=== PATIENT | male | born 1935 | race Caucasian/White ===

== ENCOUNTER → 2016-10-23 | Outpatient (CLI) | payer BC ==
[~2016-10-23] MED LIST: ALLO100T PO; AMLO-110 PO; ATOR-24 PO; CHOL200010 PO; CRG25; FURO80TA63 PO; INSDGI SC; LISI40TA PO; MAGN400T6 PO; METO2.5T PO; MULT-506 PO; NVLGI SC; PANT40TA PO; POTA20TA16 PO; WARF10TA4 PO
[2016-10-23 13:15] LABS: HEMATOCRIT 42.4 % (42-52); MEAN CELL VOLUME 86.7 fL (80-100); MEAN CORPUSCULAR HEMOGLOBIN 28.4 pg (25-34); MEAN PLATELET VOLUME 8.9 fL (7.4-10.4); PLATELET COUNT 134 K/uL (130-400); RED BLOOD COUNT 4.89 M/uL (4.7-6.1); WHITE BLOOD COUNT 7.82 K/uL (4.8-10.8)
[2016-10-23 13:21] LABS: MEAN CORPUSCULAR HGB CONC 32.8 g/dl (32-36)
[2016-10-23 13:50] LABS: EOSINOPHIL % 0.9 %; LYMPH ABS # 1.16 K/uL (1.2-3.4); LYMPHOCYTE % 14.8 %; NEUTROPHILS % 80.8 %
[2016-10-23 13:52] LABS: ESTIMATED AVERAGE GLUCOSE 177 mg/dl; HA1C FLAG Normal (Normal)
[2016-10-23 14:07] LABS: ALT/SGPT 42 U/L (12-78); AST/SGOT 23 U/L (15-37); BLOOD UREA NITROGEN 27 mg/dl (7-18); CALCIUM 9.4 mg/dl (8.5-10.1); CARBON DIOXIDE 30 mmol/L (21-32); CHLORIDE 104 mmol/L (98-107); GLUCOSE 155 mg/dl (70-99); MAGNESIUM 2.1 mg/dl (1.8-2.4); PHOSPHORUS 2.7 mg/dl (2.5-4.9); POTASSIUM 3.6 mmol/L (3.5-5.1); SODIUM 143 mmol/L (136-145)
[2016-10-23 14:10] LABS: ALKALINE PHOSPHATASE 130 U/L (45-117); FERRITIN 40.1 ng/ml (8.0-388.0); TOTAL IRON BINDING CAPACITY 317 mcg/dl (250-450)
[2016-10-23 14:18] LABS: MDIFF REQUEST Y
== END | disposition home or self-care (01) ==
LOC: C.LABMFLN 11:35
PROVIDERS: ATTEND Internal Medicine Hematology & Oncology
DX: C82.31 Follicular lymphoma grade IIIa, lymph nodes of head, face, and neck (principal); E11.9 Type 2 diabetes mellitus without complications; E66.9 Obesity, unspecified; I48.91 Unspecified atrial fibrillation

== ENCOUNTER → 2016-12-22 | Outpatient (CLI) | payer BC ==
[2016-12-22 13:08] LABS: HEMATOCRIT 41.9 % (42-52); MEAN CELL VOLUME 86.9 fL (80-100); MEAN CORPUSCULAR HEMOGLOBIN 29.9 pg (25-34); MEAN CORPUSCULAR HGB CONC 34.4 g/dl (32-36); MEAN PLATELET VOLUME 9.3 fL (7.4-10.4); PLATELET COUNT 167 K/uL (130-400); RED BLOOD COUNT 4.82 M/uL (4.7-6.1); WHITE BLOOD COUNT 8.68 K/uL (4.8-10.8)
[2016-12-22 13:24] LABS: URINE APPEARANCE CLEAR (CLEAR); URINE BILIRUBIN NEG (NEG); URINE COLOR YELLOW; URINE NITRITE NEG (NEG); URINE PH 6.5 (4.5-7.5); URINE SPECIFIC GRAVITY 1.014 (1.000-1.030); UROBILINOGEN NEG (NEG)
[2016-12-22 13:27] LABS: BLOOD UREA NITROGEN 43 mg/dl (7-18); BUN/CREATININE RATIO 23.8 (10-20); CALCIUM 9.6 mg/dl (8.5-10.1); CARBON DIOXIDE 33 mmol/L (21-32); CHLORIDE 98 mmol/L (98-107); GLUCOSE 167 mg/dl (70-99); POTASSIUM 3.5 mmol/L (3.5-5.1); SODIUM 139 mmol/L (136-145)
[2016-12-22 13:28] LABS: PHOSPHORUS 2.6 mg/dl (2.5-4.9)
[2016-12-22 13:37] LABS: MANUAL MICROSCOPIC REQUIRED? NO; REVIEW REQ? NO
[2016-12-22 13:44] LABS: URINE PROTIEN/CREAT RATIO 0.1 (0-0.2); URINE TOTAL PROTEIN 10.8 mg/dl (0-11.9)
== END | disposition home or self-care (01) ==
LOC: C.LABMFLN 11:19
PROVIDERS: ATTEND Internal Medicine Nephrology
DX: N18.3 Chronic kidney disease, stage 3 (moderate) (principal); D64.9 Anemia, unspecified; I10 Essential (primary) hypertension; E78.5 Hyperlipidemia, unspecified; I48.91 Unspecified atrial fibrillation; I50.33 Acute on chronic diastolic (congestive) heart failure

== ENCOUNTER → 2017-02-09 | Outpatient (CLI) | payer BC ==
[2017-02-09 17:56] LABS: HEMATOCRIT 38.3 % (42-52); MEAN CELL VOLUME 92.3 fL (80-100); MEAN CORPUSCULAR HEMOGLOBIN 29.9 pg (25-34); PLATELET COUNT 133 K/uL (130-400); RED BLOOD COUNT 4.15 M/uL (4.7-6.1); WHITE BLOOD COUNT 7.16 K/uL (4.8-10.8)
[2017-02-09 18:20] LABS: ALKALINE PHOSPHATASE 123 U/L (45-117); ALT/SGPT 29 U/L (12-78); AST/SGOT 19 U/L (15-37); BLOOD UREA NITROGEN 24 mg/dl (7-18); BUN/CREATININE RATIO 16.2 (10-20); CALCIUM 8.5 mg/dl (8.5-10.1); CARBON DIOXIDE 31 mmol/L (21-32); CHLORIDE 105 mmol/L (98-107); GLUCOSE 186 mg/dl (70-99); MAGNESIUM 2.3 mg/dl (1.8-2.4); PHOSPHORUS 2.5 mg/dl (2.5-4.9); POTASSIUM 4.6 mmol/L (3.5-5.1); SODIUM 140 mmol/L (136-145)
[2017-02-09 19:06] LABS: MEAN CORPUSCULAR HGB CONC 32.4 g/dl (32-36)
[2017-02-09 19:23] LABS: BASO ABS # 0.06 K/uL (0-0.2); BASOPHIL % 0.9 % (0-2); LYMPH ABS # 0.87 K/uL (1.2-3.4); LYMPHOCYTE % 12.2 %; NEUTROPHILS % 79.9 %
[2017-02-09 19:24] LABS: MDIFF REQUEST DONE
--- NOTE | 2017-02-12 13:36 | CODING QUERY NO DIAGNOSIS ---
: 1935 TREATMENT RENDERED WITHOUT A DIAGNOSIS To promote full compliance with coding requirements relating to patient care, physician participation is requested in all cases of floor layer helper uncertainty. Please assist us with providing a diagnosis/symptom for the test(s) below: A diagnosis/symptom was not documented on your Order. A valid diagnosis/symptom is required to bill all insurances. Please remember that we are unable to code a diagnosis of rule out, probable, possible, questionable, or suspected. Tests that require a diagnosis: DOS: 02/09/17 * Beta-2 Microglobulin DIAGNOSIS: * CBC w/o Differential DIAGNOSIS: * Gamma Glutamyl Transpeptidase DIAGNOSIS: * Liver Profile DIAGNOSIS: * Magnesium DIAGNOSIS: * Renal Profile DIAGNOSIS: * LDH DIAGNOSIS: Provider Signature: Date: Thank you Tabatha Cheek [employer] Once completed, please kindly fax back to [phone] For questions please call [phone]
== END | disposition home or self-care (01) ==
LOC: C.LABMFLN 13:05
PROVIDERS: ATTEND Internal Medicine Hematology & Oncology
DX: D50.9 Iron deficiency anemia, unspecified (principal); C82.31 Follicular lymphoma grade IIIa, lymph nodes of head, face, and neck; E11.9 Type 2 diabetes mellitus without complications; E66.9 Obesity, unspecified

== ENCOUNTER → 2017-03-17 | Outpatient (CLI) | payer BC ==
[2017-03-17 13:57] LABS: ESTIMATED AVERAGE GLUCOSE 180 mg/dl; HA1C FLAG Normal (Normal)
== END | disposition home or self-care (01) ==
LOC: C.LABMFLN 11:07
PROVIDERS: ATTEND Physician Assistant
DX: E11.9 Type 2 diabetes mellitus without complications (principal)

== ENCOUNTER → 2017-04-13 | Outpatient (CLI) | payer BC ==
[2017-04-13 13:31] LABS: BLOOD UREA NITROGEN 24 mg/dl (7-18); CARBON DIOXIDE 31 mmol/L (21-32); CHLORIDE 105 mmol/L (98-107); GLUCOSE 185 mg/dl (70-99); POTASSIUM 4.3 mmol/L (3.5-5.1); SODIUM 140 mmol/L (136-145)
[2017-04-13 13:32] LABS: PHOSPHORUS 2.3 mg/dl (2.5-4.9)
[2017-04-13 13:41] LABS: URINE APPEARANCE CLEAR (CLEAR); URINE BILIRUBIN NEG (NEG); URINE COLOR DK YELLOW; URINE NITRITE NEG (NEG); URINE PH 6.5 (4.5-7.5); URINE SPECIFIC GRAVITY 1.018 (1.000-1.030); UROBILINOGEN NEG (NEG)
[2017-04-13 13:44] LABS: URINE PROTIEN/CREAT RATIO 0.1 (0-0.2); URINE TOTAL PROTEIN 17.3 mg/dl (0-11.9)
[2017-04-13 13:56] LABS: MANUAL MICROSCOPIC REQUIRED? NO; REVIEW REQ? NO
== END | disposition home or self-care (01) ==
LOC: C.LABMFLN 10:53
PROVIDERS: ATTEND Internal Medicine Nephrology
DX: N18.3 Chronic kidney disease, stage 3 (moderate) (principal)

== ENCOUNTER → 2017-06-15 | Outpatient (CLI) | payer BC ==
[2017-06-15 18:10] LABS: ALT/SGPT 32 U/L (12-78); AST/SGOT 22 U/L (15-37); BLOOD UREA NITROGEN 40 mg/dl (7-18); BUN/CREATININE RATIO 23.5 (10-20); CALCIUM 9.2 mg/dl (8.5-10.1); CARBON DIOXIDE 31 mmol/L (21-32); CHLORIDE 99 mmol/L (98-107); GLUCOSE 274 mg/dl (70-99); POTASSIUM 3.9 mmol/L (3.5-5.1); SODIUM 138 mmol/L (136-145)
[2017-06-15 18:18] LABS: HEMATOCRIT 39.4 % (42-52); MEAN CELL VOLUME 86.6 fL (80-100); MEAN CORPUSCULAR HEMOGLOBIN 28.4 pg (25-34); MEAN CORPUSCULAR HGB CONC 32.7 g/dl (32-36); MEAN PLATELET VOLUME 9.8 fL (7.4-10.4); PLATELET COUNT 171 K/uL (130-400); RED BLOOD COUNT 4.55 M/uL (4.7-6.1); WHITE BLOOD COUNT 8.69 K/uL (4.8-10.8)
[2017-06-15 18:22] LABS: ALKALINE PHOSPHATASE 113 U/L (45-117); IMMUNOGLOBULN M 82.9 mg/dL (40-230); PHOSPHORUS 3.5 mg/dl (2.5-4.9)
[2017-06-15 20:08] LABS: BASO ABS # 0.08 K/uL (0-0.2); BASOPHIL % 0.9 % (0-2); EOSINOPHIL % 0.9 %; LYMPH ABS # 1.53 K/uL (1.2-3.4); LYMPHOCYTE % 17.6 %; MDIFF REQUEST Y; NEUTROPHILS % 76.9 %; TEAR DROP CELLS 1+
== END | disposition home or self-care (01) ==
LOC: C.LABMFLN 12:47
PROVIDERS: ATTEND Internal Medicine Hematology & Oncology
DX: D50.9 Iron deficiency anemia, unspecified (principal); C82.31 Follicular lymphoma grade IIIa, lymph nodes of head, face, and neck; E11.9 Type 2 diabetes mellitus without complications; E66.9 Obesity, unspecified

== ENCOUNTER → 2017-08-17 | Outpatient (CLI) | payer BC ==
[2017-08-17 13:21] LABS: BLOOD UREA NITROGEN 35 mg/dl (7-18); BUN/CREATININE RATIO 18.8 (10-20); CALCIUM 8.8 mg/dl (8.5-10.1); CARBON DIOXIDE 31 mmol/L (21-32); CHLORIDE 99 mmol/L (98-107); CREATININE 1.84 mg/dl (0.60-1.40); GLUCOSE 254 mg/dl (70-99); PHOSPHORUS 2.6 mg/dl (2.5-4.9); POTASSIUM 3.7 mmol/L (3.5-5.1); SODIUM 133 mmol/L (136-145)
== END | disposition home or self-care (01) ==
LOC: C.LABMFLN 10:25
PROVIDERS: ATTEND Family Medicine
DX: N18.3 Chronic kidney disease, stage 3 (moderate) (principal)

== ENCOUNTER → 2017-10-13 | Outpatient (CLI) | payer BC ==
[2017-10-13 17:59] LABS: INR 2.7 (0.9-1.1)
[2017-10-13 18:01] LABS: ALBUMIN 3.5 gm/dl (3.4-5.0); BASO % 0.2 %; BASO ABS # 0.02 K/uL (0-0.2); BLOOD UREA NITROGEN 46 mg/dl (7-18); CALCIUM 9.1 mg/dl (8.5-10.1); CARBON DIOXIDE 30 mmol/L (21-32); CREATININE 1.91 mg/dl (0.60-1.40); EOS % 0.9 %; EOS ABS # 0.09 K/uL (0-0.5); GLUCOSE 233 mg/dl (70-99); HEMOGLOBIN 10.4 g/dL (14.0-18.0); IG# 0.04 K/uL (0.00-0.02); LYMPH % 11.7 %; LYMPH ABS # 1.15 K/uL (1.2-3.4); MEAN CELL VOLUME 76.7 fL (80-100); MEAN CORPUSCULAR HEMOGLOBIN 23.5 pg (25-34); MEAN CORPUSCULAR HGB CONC 30.6 g/dl (32-36); MEAN PLATELET VOLUME 9.4 fL (7.4-10.4); MONO % 7.5 %; MONO ABS # 0.74 K/uL (0.11-0.59); NEUT % 79.3 %; NEUT ABS # 7.81 K/uL (1.4-6.5); PLATELET COUNT 199 K/uL (130-400); RED CELL DISTRIBUTION WIDTH CV 16.6 % (11.5-14.5); RED CELL DISTRIBUTION WIDTH SD 46.6 fL (36.4-46.3); SODIUM 134 mmol/L (136-145); WHITE BLOOD COUNT 9.85 K/uL (4.8-10.8)
[2017-10-13 18:02] LABS: PHOSPHORUS 2.4 mg/dl (2.5-4.9)
[2017-10-13 18:17] LABS: ALBUMIN 3.4 gm/dl (3.4-5.0); TOTAL PROTEIN 7.2 gm/dl (6.4-8.2)
[2017-10-14 05:43] LABS: HEMOGLOBIN A1C 7.9 % (4.5-5.6)
[2017-10-15 10:17] LABS: BETA-2-MICROGLOBULIN 852 4.42 MG/L (0.00-2.51)
== END | disposition home or self-care (01) ==
LOC: C.LABMFLN 10:50
PROVIDERS: ATTEND Internal Medicine Hematology & Oncology
DX: C82.31 Follicular lymphoma grade IIIa, lymph nodes of head, face, and neck (principal); N18.3 Chronic kidney disease, stage 3 (moderate); I48.91 Unspecified atrial fibrillation; E11.9 Type 2 diabetes mellitus without complications

== ENCOUNTER → 2018-01-11 | Outpatient (CLI) | payer BC ==
[~2018-01-11] MED LIST changes: +POTA-639 PO; -POTA20TA16 PO
--- NOTE | 2018-01-12 09:37 | PULMONARY FUNCTION TEST ---
CLINICAL DATA: An 82-year-old male with a height of 71 inches and a weight of 309 pounds referred by Ghazal Cuba PA-C for evaluation of dyspnea with exertion. Spirometry pre- and post-bronchodilator, lung volumes, and DLCO were performed. FINDINGS: Pre-bronchodilator spirometry demonstrates mild obstructive airways disease. FVC was 86% of predicted. FEV1 was 80% of predicted. [id number] was 53% of predicted. There was slight improvement in small airway flow after inhaled bronchodilator. FEV1 improved 1% to 81% of predicted. [id number] improved 19% to 63% of predicted. Lung volumes showed a reduction in expiratory reserve volume due to the patient's obesity. DLCO was mildly reduced at 74% of predicted with a normal DLCO/VA. IMPRESSION: Mild obstructive airways disease with slight improvement after inhaled bronchodilators. Reduction in expiratory reserve volume on lung volume testing secondary to obesity. Mild reduction in DLCO with normal DLCO/VA. MTDD
== END | disposition home or self-care (01) ==
LOC: C.RC 10:02
PROVIDERS: ATTEND Physician Assistant
DX: J44.9 Chronic obstructive pulmonary disease, unspecified (principal)

== ENCOUNTER → 2018-01-13 | Outpatient (CLI) | payer BC ==
--- NOTE | 2018-01-13 17:36 | EXERCISE STRESS ECHO ---
*NOTICE TO RECEIVING [employer] This information is strictly Confidential and protected under [place] law. [place] law prohibits you from making any further disclosure of this information unless further disclosure is expressly permitted by the written consent of the person to whom it pertains or is authorized by law. A general authorization for the release of medical or other information is not sufficient for this purpose. Hospital accepts no responsibility if the information is made available to any other person, INCLUDING THE PATIENT. Interpretation Summary * Name: DOV CAN Study Date: 01/13/2018 08:51 AM BP: 147/50 mmHg * Patient Location: [facility] HR: 60 * : 1935 (M/d/yyyy) Gender: Male Height: 71 in * Age: 82 yrs Ethnicity: [place] Weight: 308 lb * Ordering Physician: Chris Bunch * Referring Physician: Ghazal Cuba * Performed By: Chata Glasgow RDCS * * Reason For Study: SOB * BSA: 2.5 m2 * -- Conclusions -- * Stress Echo: * 1. Nondiagnostic stress echo. Patient exercised a total of 1 minutes and 3 seconds on standard Willi protocol and attained only 57% MPHR. There was no significant augmentation at this low level exercise. * 2. Indeterminate exercise ECG due to paced rhythm. * 3. Very poor exercise tolerance. * 4. Technically difficult study, enhanced with IV Definity. * 5. If further noninvasive ischemic evaluation is clinically indicated, would consider myocardial perfusion study. * ECHO: * 1. Mildly dilated left ventricle with normal systolic function. EF 55-60%. No regional wall motion abnormalities. Severe concentric left ventricular hypertrophy. * 2. The right ventricle is moderately dilated. The right ventricular systolic function is normal as assessed by tricuspid annular plane systolic excursion (TAPSE) (normal >1.5 cm). * 3. Severe biatrial dilation. * 4. Sclerotic aortic valve without significant stenosis. * 5. There is mild mitral regurgitation. * 6. Mildly elevated right ventricular systolic pressure; RVSP 43 mmHg. * 7. Technically difficult study. Procedure Details * ECHOEX, CPT #91956 * A contrast injection of Definity was performed to improve assessment of LV function. * Contrast was injected into an intravenous site in the left arm. * One vial of Definity ultrasound contrast was diluted in normal saline to a total volume of 10 ml. A total of '2' ml of solution was administered during imaging. * Lot # [id number] of Definity utilized for procedure. * Expiration date 1 NOV 01. * The attending nurse who injected the contrast agent was DEVIN MONTOYA RN. Left Ventricle * Mildly dilated left ventricle with normal systolic function. EF 55-60%. No regional wall motion abnormalities. Severe concentric left ventricular hypertrophy. Right Ventricle * The right ventricle is moderately dilated. * The right ventricular systolic function is normal as assessed by tricuspid annular plane systolic excursion (TAPSE) (normal >1.5 cm). Atria * The left atrium is severely dilated. * The right atrium is severely dilated. Mitral Valve * There is mild mitral annular calcification. * There is no mitral valve stenosis. * There is mild mitral regurgitation. Tricuspid Valve * The tricuspid valve is not well visualized. * There is no tricuspid stenosis. * There is trace tricuspid regurgitation. Aortic Valve * The aortic valve is trileaflet. * Sclerotic aortic valve without significant stenosis. * There is no significant aortic regurgitation. Pulmonic Valve * The pulmonary valve is inadequately visualized, but the Doppler data is adequate for interpretation. * Trace pulmonic valvular regurgitation. Great Vessels * The aortic root is normal size. * Ascending aorta of normal dimension * Blunted pulmonary venous flow pattern. Dilated IVC with reduced inspiratory collapse. Pericardium * There is no pericardial effusion. Stress Parameters * Ventricular paced at 60 bpm. * Stress ECG: No ST changes. No arrhythmias. * Rest heart rate was '60' BPM. * Rest blood pressure was '147/50' * Maximum heart rate achieved was 78 bpm. * Maximum heart rate was 57 % of maximum age-predicted heart rate. * Maximum blood pressure was '147/50' * Total exercise time was '1:03' * Maximum exercise MET level achieved was '2.80' METS * Maximum treadmill speed was '1.7' miles per hour. * Maximum treadmill elevation was '10.00'% grade. * Exercise was terminated due to 'FATIGUE' MMode 2D Measurements and Calculations IVSd 1.6 cm LVIDd 5.6 cm LVIDs 3.9 cm LVPWd 1.6 cm IVS/LVPW 1.0 FS 29.6 % EDV(Teich) 150.8 ml ESV(Teich) 66.3 ml EF(Teich) 56.0 % EDV(cubed) 171.4 ml ESV(cubed) 59.8 ml EF(cubed) 65.1 % LV mass(C)d 404.6 grams LV mass(C)dI 159.7 grams/m\S\2 SV(Teich) 84.5 ml SI(Teich) 33.4 ml/m\S\2 SV(cubed) 111.6 ml SI(cubed) 44.0 ml/m\S\2 Ao root diam 3.7 cm Ao root area 10.8 cm\S\2 LA dimension 6.0 cm asc Aorta Diam 3.2 cm LA/Ao 1.6 Doppler Measurements and Calculations MV E max aguilar 145.5 cm/sec MV dec time 0.18 sec Ao V2 max 176.6 cm/sec Ao max PG 12.5 mmHg Ao max PG (full) 7.7 mmHg Ao V2 mean 126.0 cm/sec Ao mean PG 7.2 mmHg Ao mean PG (full) 4.6 mmHg Ao V2 VTI 38.5 cm LV V1 max PG 4.8 mmHg LV V1 mean PG 2.6 mmHg LV V1 max 109.0 cm/sec LV V1 mean 74.9 cm/sec LV V1 VTI 26.3 cm SV(Ao) 415.5 ml SI(Ao) 164.0 ml/m\S\2 TR max aguilar 264.8 cm/sec RVSP(TR) 43.1 mmHg RAP systole 15.0 mmHg
== END | disposition home or self-care (01) ==
LOC: C.CPL 08:40
PROVIDERS: ATTEND Physician Assistant
DX: I50.32 Chronic diastolic (congestive) heart failure (principal); R06.02 Shortness of breath

== ENCOUNTER → 2018-01-24 | Outpatient (CLI) | payer BC ==
[2018-01-24 12:45] LABS: HEMATOCRIT 32.6 % (42-52); HEMOGLOBIN 9.4 g/dL (14.0-18.0); MEAN CELL VOLUME 67.4 fL (80-100); MEAN CORPUSCULAR HEMOGLOBIN 19.4 pg (25-34); MEAN CORPUSCULAR HGB CONC 28.8 g/dl (32-36); MEAN PLATELET VOLUME 8.6 fL (7.4-10.4); PLATELET COUNT 213 K/uL (130-400); RED CELL DISTRIBUTION WIDTH CV 18.5 % (11.5-14.5); RED CELL DISTRIBUTION WIDTH SD 45.1 fL (36.4-46.3); WHITE BLOOD COUNT 9.95 K/uL (4.8-10.8)
[2018-01-24 13:17] LABS: BLOOD UREA NITROGEN 51 mg/dl (7-18); CALCIUM 9.5 mg/dl (8.5-10.1); CARBON DIOXIDE 32 mmol/L (21-32); CHOLESTEROL 77 mg/dl (0-200); CREATININE 1.83 mg/dl (0.60-1.40); GLUCOSE 136 mg/dl (70-99); POTASSIUM 3.8 mmol/L (3.5-5.1); SODIUM 138 mmol/L (136-145)
[2018-01-24 13:27] LABS: LDL CHOLESTEROL CALCULATED 20 mg/dl
[2018-01-24 13:28] LABS: HEMOGLOBIN A1C 7.7 % (4.5-5.6)
[2018-01-24 13:29] LABS: BASO % 0.2 %; BASO ABS # 0.02 K/uL (0-0.2); IG# 0.04 K/uL (0.00-0.02); LYMPH % 12.5 %; LYMPH ABS # 1.24 K/uL (1.2-3.4); MONO % 6.5 %; MONO ABS # 0.65 K/uL (0.11-0.59); NEUT % 79.4 %
== END | disposition home or self-care (01) ==
LOC: C.LABMFLN 09:47
PROVIDERS: ATTEND Physician Assistant
DX: D64.9 Anemia, unspecified (principal); I50.32 Chronic diastolic (congestive) heart failure; E11.9 Type 2 diabetes mellitus without complications

== ENCOUNTER → 2018-01-31 | Outpatient (CLI) | payer BC ==
--- NOTE | 2018-01-31 14:37 | DIAGNOSTIC IMAGING REPORT ---
NUCLEAR BONE SCAN OF THE THORACOLUMBAR SPINE CLINICAL HISTORY: Vertebral compression deformity. COMPARISON STUDY: Abdominal CT dated 05/24/2015. TECHNIQUE: Three hours following the IV administration of 25 mCi of technetium 99m MDP, limited nuclear bone scan of the thoracolumbar spine is performed. Images are acquired in the anterior, posterior, and oblique projections. FINDINGS: There is no abnormal osseous tracer deposition identified typical in appearance for bony metastatic disease. There is no abnormal tracer deposition identified localizing to the thoracolumbar spine to suggest acute compression fracture. No significant degenerative activity is seen. No abnormal activity is identified involving the bony pelvis. There is expected excreted activity within the renal collecting system and bladder. IMPRESSION: There is no abnormal tracer deposition identified localizing to the thoracolumbar spine or pelvis. Electronically signed by: Hiro Narvaez M.D. 01/31/2018 2:36 PM Dictated Date/Time: 01/31/2018 2:33 PM
== END | disposition home or self-care (01) ==
LOC: C.NUCL 10:40
PROVIDERS: ATTEND Physician Assistant
DX: M43.9 Deforming dorsopathy, unspecified (principal)

== ENCOUNTER → 2018-04-14 | Outpatient (CLI) | payer BC ==
[~2018-04-14] MED LIST changes: -AMLO-110 PO; +AMLO5TAB3 PO
[2018-04-14 12:33] LABS: BASO % 0.2 %; BASO ABS # 0.02 K/uL (0-0.2); EOS % 1.3 %; EOS ABS # 0.11 K/uL (0-0.5); HEMATOCRIT 42.2 % (42-52); HEMOGLOBIN 13.3 g/dL (14.0-18.0); IG# 0.05 K/uL (0.00-0.02); LYMPH ABS # 1.23 K/uL (1.2-3.4); MEAN CELL VOLUME 83.4 fL (80-100); MEAN CORPUSCULAR HEMOGLOBIN 26.3 pg (25-34); MEAN PLATELET VOLUME 9.6 fL (7.4-10.4); MONO % 6.8 %; NEUT % 77.1 %; NEUT ABS # 6.76 K/uL (1.4-6.5); PLATELET COUNT 151 K/uL (130-400); RED CELL DISTRIBUTION WIDTH CV 25.9 % (11.5-14.5); RED CELL DISTRIBUTION WIDTH SD 74.8 fL (36.4-46.3); WHITE BLOOD COUNT 8.77 K/uL (4.8-10.8)
[2018-04-14 12:37] LABS: MEAN CORPUSCULAR HGB CONC 31.5 g/dl (32-36)
== END | disposition home or self-care (01) ==
LOC: C.LABMFLN 10:16
PROVIDERS: ATTEND Internal Medicine Hematology & Oncology
DX: D50.9 Iron deficiency anemia, unspecified (principal)

== ENCOUNTER → 2018-04-26 | Outpatient (CLI) | payer BC ==
[2018-04-26 14:26] LABS: ALBUMIN 3.5 gm/dl (3.4-5.0); BLOOD UREA NITROGEN 35 mg/dl (7-18); CALCIUM 9.1 mg/dl (8.5-10.1); CARBON DIOXIDE 31 mmol/L (21-32); CREATININE 1.65 mg/dl (0.60-1.40); GLUCOSE 139 mg/dl (70-99); PHOSPHORUS 2.8 mg/dl (2.5-4.9); POTASSIUM 3.5 mmol/L (3.5-5.1); SODIUM 138 mmol/L (136-145)
== END | disposition home or self-care (01) ==
LOC: C.LABMFLN 10:55
PROVIDERS: ATTEND Internal Medicine Nephrology
DX: N18.3 Chronic kidney disease, stage 3 (moderate) (principal)